=== PATIENT | female | born 1930 | race Two or more races ===

== ENCOUNTER 2018-10-23 13:36 | Emergency (ER) | payer OTHER ==
[~2018-10-23] VITALS: Ht 149.9 cm; Wt 67.1 kg
[2018-10-23] MEDS ORDERED: ARICEPT5 MG (14:13)
[2018-10-23] MEDS ORDERED: HYZAAR 100-12.1 EACH (14:13)
[2018-10-23] MEDS ORDERED: ZOCOR20 MG (14:13)
[2018-10-23] MEDS ORDERED: NORVASC5 MG (14:13)
[2018-10-23] MEDS ORDERED: ZOLOFT50 MG (14:13)
[2018-10-23] MEDS ORDERED: ADRENOID CAPSU1 EACH (14:14)
[2018-10-23] MEDS ORDERED: B-COMPLEX WIT400 MC1 (14:14)
== END 2018-10-23 22:13 | disposition home or self-care (01) ==
LOC: ER 13:36
DX: R13.19 Other dysphagia (principal); N39.0 Urinary tract infection, site not specified; I10 Essential (primary) hypertension

== ENCOUNTER 2019-09-04 10:21 | Emergency (ER) | payer OTHER ==
[~2019-09-04] VITALS: Ht 142.2 cm; Wt 64.0 kg
[~2019-09-04 10:21] MED LIST: ADRENOID CAPSU1 EACH; ARICEPT5 MG; B-COMPLEX WIT400 MC1; HYZAAR 100-12.1 EACH; NORVASC5 MG; ZOCOR20 MG; ZOLOFT50 MG
[2019-09-04] MEDS ORDERED: SERTRALINE20 MG/1 ML (10:47)
[2019-09-04] MEDS ORDERED: LOSARTAN-HCTZ1 EAC2 (10:47)
[2019-09-04] MEDS ORDERED: SYNTHROID50 MCG (10:47)
[2019-09-04] MEDS ORDERED: DIALYVITE 800800 MCG (10:48)
[2019-09-04] MEDS ORDERED: ARICEPT5 MG (10:48)
[2019-09-04] MEDS ORDERED: AZOR 5-20 MG T1 EACH (10:48)
== END 2019-09-04 11:34 | disposition home or self-care (01) ==
LOC: ER 10:21
DX: K94.29 Other complications of gastrostomy (principal)